=== PATIENT | female | born 1975 | race Caucasian/White ===

== ENCOUNTER → 2019-07-13 | Outpatient (CLI) | payer OTHER ==
[~2019-07-13] MED LIST: ATOM25CA3 PO; B 12; BPR150TCR PO; CALC-139; CALC-656 PO; CALC-793; COLE1TAB; CPR500T PO; DIAZ10TA PO; DICY20TA57; DULO60CA6; DULO60CA6 PO; ERGO400C; EST1.25T PO; ESTR1TAB50 PO; HYDR-34; HYDR-3720 PO; KCL20TCR PO; LEVO175T2 PO; LEVO200T30; LEVO200T30 PO; LEVO500T69 PO; LIRA0.6P SQ; MAGN200T3 PO; MELO-195 PO; MELO7.5T; METR500T PO; MTF500T PO; NF-ESOM40C; NF-PREM2.5; OMEP20CA6 PO; PNT40TEC PO; SPIR25TA3 PO; VITA-185 PO; VITAMIN D
== END ==
LOC: LAB 08:25
PROVIDERS: ATTEND Chiropractor
DX: E03.9 Hypothyroidism, unspecified (principal); E34.9 Endocrine disorder, unspecified; D50.9 Iron deficiency anemia, unspecified; E55.9 Vitamin D deficiency, unspecified

== ENCOUNTER 2019-08-21 11:03 | Emergency (ER) | payer SELFPAY ==
[~2019-08-21] VITALS: Ht 177 cm; Wt 77.0 kg
[2019-08-21 11:34] LABS: BASOPHILS % (AUTO) 0 % (0-10); EOSINOPHILS % (AUTO) 0 % (0-10); HEMATOCRIT 41 % (35-52); HEMOGLOBIN 13.6 G/DL (11.5-16.0); LYMPHOCYTES # (AUTO) 1.5 X 10^3 (1.0-4.0); LYMPHOCYTES % (AUTO) 39 % (12-44); MEAN CORPUSCULAR HEMOGLOBIN 28 PG (25-34); MEAN CORPUSCULAR HGB CONC 34 G/DL (32-36); MEAN CORPUSCULAR VOLUME 84 FL (80-99); MEAN PLATELET VOLUME 10.7 FL (7.4-10.4); MONOCYTES # (AUTO) 0.3 X 10^3 (0.0-1.0); MONOCYTES % (AUTO) 8 % (0-12); NEUTROPHILS % (AUTO) 53 % (42-75); PLATELET COUNT 150 10^3/uL (130-400); RED CELL DISTRIBUTION WIDTH 12.5 % (10.0-14.5); WHITE BLOOD COUNT 3.8 10^3/uL (4.3-11.0)
[2019-08-21 11:46] LABS: ALBUMIN 4.2 GM/DL (3.2-4.5); CHLORIDE 106 MMOL/L (98-107); POTASSIUM 3.3 MMOL/L (3.6-5.0); SODIUM 138 MMOL/L (135-145)
[2019-08-21 11:49] LABS: GLUCOSE 94 MG/DL (70-105); TOTAL PROTEIN 7.2 GM/DL (6.4-8.2)
[2019-08-21 11:50] LABS: BILIRUBIN,TOTAL 0.4 MG/DL (0.1-1.0); CARBON DIOXIDE 20 MMOL/L (21-32)
[2019-08-21 11:52] LABS: ALKALINE PHOSPHATASE 66 U/L (40-136); CREATININE SERUM 0.74 MG/DL (0.60-1.30); GFR ESTIMATED > 60
[2019-08-21 11:53] LABS: BUN/CREATININE RATIO 18
[2019-08-21 11:55] LABS: ALANINE AMINOTRANSFERASE 34 U/L (0-55)
[2019-08-21 11:56] LABS: ERYTHROCYTE SEDIMENTATION RATE 18 MM/HR (0-20)
[2019-08-21] MEDS ORDERED: NS IV 1000 ML 1,000 ML IV SCH (12:17)
--- NOTE | 2019-08-21 12:17 | ED Cough/URI ---
General Stated Complaint: COVID SYMPTOMS History of Present Illness Date Seen by Provider: Aug 21, 2019 Time Seen by Provider: 11:35 Initial Comments 44 year old female presents 8 days after symptoms of COVID-19 started. She was tested at [facility], no results called to patient. We called to [facility] and results are still pending. She reports fevers and home SaO2 at 65% this am but 96% on RA on admission here. Her best friend is Aspen Fitzpatrick APRN and she started her on Decadron, Plaquenil and Pulmicort yesterday. She has not been seen by a Health Care provider, other than for testing. She does not take Tylenol or Ibuprofen for fevers, does not like to take medication. She reports loss of appetite, smell and taste. Patient has a chronic history of asthma and bronchitis. Timing/Duration: getting worse Severity/Quality: mild, dry cough Prior Episodes/Possible Cause: no prior episodes Associated Symptoms: cough, fever/chills, muscle aches, shortness of breath Allergies and Home Medications Allergies Coded Allergies: morphine (Unverified Allergy, Mild, 07/20/08) Home Medications Bupropion Hcl 150 Mg Tablet, 1 TAB PO DAILY, (Reported) Diazepam 10 Mg Tablet, 1 EACH PO BID PRN Prescribed by: MITZI MIRANDA on 05/30/131710 Levofloxacin 500 Mg Tab, 1 EACH PO DAILY Prescribed by: MITZI MIRANDA on 05/30/131708 Levothyroxine Sodium 175 Mcg Tablet, 1 EACH PO DAILY, (Reported) Liraglutide 0.6 Mg/0.1 Ml Pen.injctr, 1.8 MG SQ DAILY, (Reported) Metformin Hcl 500 Mg Tab, 1,000 MG PO DAILY, (Reported) Pantoprazole Sodium 40 Mg Tablet.dr, 1 TAB PO DAILY Prescribed by: MITZI MIRANDA on 05/30/131710 Vitamin B Complex 1 Each Tablet, 1 EACH PO DAILY Prescribed by: MITZI MIRANDA on 05/30/131710 Patient Home Medication List Home Medication List Reviewed: Yes Review of Systems Review of Systems Constitutional: see HPI, fever, malaise, weakness EENTM: see HPI Respiratory: see HPI, cough, short of breath Cardiovascular: no symptoms reported, see HPI Gastrointestinal: no symptoms reported, see HPI; No abdominal pain, No constipation, No diarrhea; loss of appetite; No nausea, No vomiting Genitourinary: no symptoms reported, see HPI : No Musculoskeletal: see HPI, muscle pain, muscle stiffness All Other Systems Reviewed Negative Unless Noted: Yes Past Hadbjdu-Kjqsct-Jumweh Hx Past Med/Social Hx: Reviewed Nursing Past Med/Soc Hx Physical Exam Vital Signs - First Documented 08/21/19 11:03 Temp 37.0 Pulse 96 Resp 11 B/P (MAP) 131/85 (100) Pulse Ox 97 O2 Delivery Room Air Capillary Refill : Height: 5'8.00" Weight: 175lbs. 0.0oz. [id number]; BMI Method:Stated General Appearance: WD/WN, no apparent distress Eyes: Bilateral Eye Normal Inspection, Bilateral Eye PERRL, Bilateral Eye EOMI HEENT: PERRL/EOMI, normal ENT inspection, TMs normal, pharynx normal Neck: non-tender, full range of motion, supple, normal inspection Respiratory: chest non-tender, lungs clear, normal breath sounds; No decreased breath sounds, No crackles, No rales, No rhonchi, No wheezing Cardiovascular: normal peripheral pulses, regular rate, rhythm Gastrointestinal: normal bowel sounds, non tender, soft Extremities: normal range of motion, non-tender, normal inspection, no pedal edema, no calf tenderness, normal capillary refill Neurologic/Psychiatric: no motor/sensory deficits, alert, normal mood/affect, oriented x 3 Skin: normal color, warm/dry; No rash Progress/Results/Core Measures Suspected Sepsis SIRS Temperature: Pulse: Respiratory Rate: Laboratory Tests 08/21/19 11:15: White Blood Count 3.8L Blood Pressure / Mean: Laboratory Tests 08/21/19 11:15: Creatinine 0.74, Platelet Count 150, Total Bilirubin 0.4 Results/Orders Lab Results Laboratory Tests Test 08/21/19 11:15 Range/Units White Blood Count 3.8 L 4.3-11.0 10^3/uL Red Blood Count 4.81 4.35-5.85 10^6/uL Hemoglobin 13.6 11.5-16.0 G/DL Hematocrit 41 35-52 % Mean Corpuscular Volume 84 80-99 FL Mean Corpuscular Hemoglobin 28 25-34 PG Mean Corpuscular Hemoglobin Concent 34 32-36 G/DL Red Cell Distribution Width 12.5 10.0-14.5 % Platelet Count 150 130-400 10^3/uL Mean Platelet Volume 10.7 H 7.4-10.4 FL Neutrophils (%) (Auto) 53 42-75 % Lymphocytes (%) (Auto) 39 12-44 % Monocytes (%) (Auto) 8 0-12 % Eosinophils (%) (Auto) 0 0-10 % Basophils (%) (Auto) 0 0-10 % Neutrophils # (Auto) 2.0 1.8-7.8 X 10^3 Lymphocytes # (Auto) 1.5 1.0-4.0 X 10^3 Monocytes # (Auto) 0.3 0.0-1.0 X 10^3 Eosinophils # (Auto) 0.0 0.0-0.3 10^3/uL Basophils # (Auto) 0.0 0.0-0.1 10^3/uL Erythrocyte Sedimentation Rate 18 0-20 MM/HR D-Dimer 0.44 0.00-0.49 UG/ML Sodium Level 138 135-145 MMOL/L Potassium Level 3.3 L 3.6-5.0 MMOL/L Chloride Level 106 98-107 MMOL/L Carbon Dioxide Level 20 L 21-32 MMOL/L Anion Gap 12 5-14 MMOL/L Blood Urea Nitrogen 13 7-18 MG/DL Creatinine 0.74 0.60-1.30 MG/DL Estimat Glomerular Filtration Rate > 60 BUN/Creatinine Ratio 18 Glucose Level 94 70-105 MG/DL Calcium Level 9.0 8.5-10.1 MG/DL Corrected Calcium 8.8 8.5-10.1 MG/DL Total Bilirubin 0.4 0.1-1.0 MG/DL Aspartate Amino Transf (AST/SGOT) 24 5-34 U/L Alanine Aminotransferase (ALT/SGPT) 34 0-55 U/L Alkaline Phosphatase 66 40-136 U/L Lactate Dehydrogenase 195 125-220 U/L C-Reactive Protein High Sensitivity 0.15 0.00-0.50 MG/DL Total Protein 7.2 6.4-8.2 GM/DL Albumin 4.2 3.2-4.5 GM/DL Procalcitonin 0.02 <0.10 NG/ML My Orders Orders - MIKAELA NAILS Cbc With Automated Diff (08/21/19 11:20) Comprehensive Metabolic Panel (08/21/19 11:20) Fibrin Degradation Products (08/21/19 11:20) Procalcitonin (Pct) (08/21/19 11:20) Hs C Reactive Protein (08/21/19 11:20) Erythrocyte Sedimentation Rate (08/21/19 11:20) LDH (08/21/19 11:20) Chest 1 View, Ap/Pa Only (08/21/19 11:20) Ed Iv/Invasive Line Start (08/21/19 12:17) Ns Iv 1000 Ml (Sodium Chloride 0.9%) (08/21/19 12:17) Potassium Chloride (Tablet) (Klor Con Ta (08/21/19 12:27) Vital Signs/I&O 08/21/19 08/21/19 11:03 13:16 Temp 37.0 37.0 Pulse 96 84 Resp 11 16 B/P (MAP) 131/85 (100) 121/77 (100) Pulse Ox 97 98 O2 Delivery Room Air Room Air Capillary Refill : Progress Note : Time: 11:35 Progress Note Patient seen and evaluated, will obtain labs and chest x-ray, we'll continue to monitor. Normal saline 1 L per IV. 1230 Labs WNL. Patient feels less weak. SaO2 has remained 96-98% on RA. Stressed importance to stay home, isolate and await results. With current symptoms, likely that she has COVID-19. Discharge instructions and return precautions reviewed with the patient. All questions answered. Diagnostic Imaging Diagonstic Imaging: Xray Plain Films/CT/US/NM/MRI: chest Comments NAME: MIKAELA MONTES [facility] REC#: [id number] PT STATUS: REG ER : 1975 PHYSICIAN: MIKAELA NAILS [facility] ADMIT DATE: 08/21/19/ER Draft Date of Exam:08/21/19 CHEST 1 VIEW, AP/PA ONLY INDICATION: COVID symptoms. TIME OF EXAM: 11:59 AM Correlation is made with prior chest from 09/08/2009. The heart size is normal. The pulmonary vascularity is normal. There is minimal increased density along the periphery of the left mid lung. While this could be secondary to overlying soft tissues, minimal infiltrate at this location cannot be entirely excluded. No effusion is seen. There is no pneumothorax. Remainder of lung golden are clear. IMPRESSION: Questionable minimal infiltrate versus overlying soft tissues left mid lung peripherally. Study is otherwise unremarkable. Dictated on workstation # [id number] Dict: 08/21/19 1222 Trans: 08/21/[address] [facility] [id number] Interpreted by: KELLY KAUR MD Electronically signed by: Reviewed: Reviewed by Me Departure Impression Primary Impression: COVID-19 PUI Disposition: 01 HOME, SELF-CARE Condition: Stable Departure-Patient Inst. Decision time for Depature: 12:50 Referrals: DELMER UPTON DO (PCP/Family) Primary Care Physician Patient Instructions: Coronavirus Disease 2019 (COVID-19) (DC) Add. Discharge Instructions: Increase rest, fluids and stay home, until test results are called to you. Alternate Tylenol 650 mg and Ibuprofen 600 mg every 4 hours, for fever or gen eralized discomfort. Call Dr. Upton, if symptoms are not improving or worsen. Continue to take Plaquenil, Decadron and use the Pulmicort, as previously prescribed. Return to the Emergency Dept if shortness of breath, fever not improved with Tylenol or Ibuprofen or new urgent health care needs. Copy Copies To 1: DELMER UPTON AMY ARNP Aug 21, 2019 12:17
--- NOTE | 2019-08-21 12:25 | Diagnostic Imaging Report ---
INDICATION: COVID symptoms. TIME OF EXAM: 11:59 AM Correlation is made with prior chest from 09/08/2009. The heart size is normal. The pulmonary vascularity is normal. There is minimal increased density along the periphery of the left mid lung. While this could be secondary to overlying soft tissues, minimal infiltrate at this location cannot be entirely excluded. No effusion is seen. There is no pneumothorax. Remainder of lung golden are clear. IMPRESSION: Questionable minimal infiltrate versus overlying soft tissues left mid lung peripherally. Study is otherwise unremarkable. Dictated by: Dictated on workstation # [id number]
[2019-08-21] MEDS ORDERED: KCL 10 MEQ TAB (MICRO K) PO STA (12:27)
[2019-08-21 13:16] VITALS: BP 121/77
== END 2019-08-21 13:17 | disposition home or self-care (01) ==
LOC: EDUNIT# 11:13 → ER 11:15
DX: Z20.828 Contact with and (suspected) exposure to other viral communicable diseases (principal); Z88.5 Allergy status to narcotic agent; Z79.84 Long term (current) use of oral hypoglycemic drugs
CPT/HCPCS: 36415; 71045; 80053; 83615; 84145; 85025; 85379; 85652; 86141; 96360

== ENCOUNTER → 2020-07-28 | Outpatient (CLI) | payer MEDICAID ==
--- NOTE | 2020-07-28 09:58 | Diagnostic Imaging Report ---
Clinical indication: Patient having dizzy spells and memory problems. Exam: MRI of the brain performed without IV contrast. Sequences include axial DWI, ADC map, axial T2, axial FLAIR, axial T1, axial gradient echo, and sagittal T1. Comparison: MRI of the brain without and with contrast dated 10/17/2007. Findings: There is no evidence of acute cerebral infarct, intracranial hemorrhage, or gross mass effect. The brain parenchymal volume appears appropriate for patient's age. There is normal vogt-white matter distinction. There is no significant midline shift or herniation. There is no evidence of hydrocephalus. The basal cisterns are unremarkable. There is fatty infiltration and atrophy of the left parotid gland which is also noted on the prior study. Otherwise, the skull, extracranial soft tissue, and orbits are unremarkable. The paranasal sinuses are unremarkable. Temporal bones show no significant abnormality. IMPRESSION: 1: Unremarkable MRI of the brain. 2: Partially visualized fatty replacement and atrophy of the left parotid gland is again noted. Dictated by: Dictated on workstation # [id number]
== END ==
LOC: RAD 08:45
PROVIDERS: ATTEND Nurse Practitioner Family
DX: F68.8 Other specified disorders of adult personality and behavior (principal); K11.0 Atrophy of salivary gland; R41.3 Other amnesia
CPT/HCPCS: 70551

== ENCOUNTER → 2020-10-14 | Outpatient (CLI) | payer MEDICAID ==
[2020-10-14 10:03] LABS: HEMATOCRIT 42 % (35-52); HEMOGLOBIN 13.6 g/dL (11.5-16.0); MEAN CORPUSCULAR HEMOGLOBIN 29 pg (25-34); MEAN CORPUSCULAR HGB CONC 32 g/dL (32-36); MEAN CORPUSCULAR VOLUME 89 fL (80-99); MEAN PLATELET VOLUME 10.7 fL (9.0-12.2); PLATELET COUNT 166 10^3/uL (130-400); WHITE BLOOD COUNT 5.2 10^3/uL (4.3-11.0)
[2020-10-14 10:40] LABS: FREE T4 (FREE THYROXINE) 0.84 NG/DL (0.70-1.48)
--- NOTE | 2020-10-14 13:41 | Diagnostic Imaging Report ---
PROCEDURE: MR imaging cervical spine without contrast. TECHNIQUE: Multiplanar, multisequence MR imaging of the cervical spine was performed without contrast. INDICATION: Neck pain. No known injury. COMPARISON: 04/11/2013. FINDINGS: No acute fracture or dislocation is seen in the cervical spine. There is slight reversal of the normal lordotic curvature of the cervical spine centered at the C4-C5 level. The vertebral body heights and disc spaces are well maintained. The bone marrow signal is unremarkable. Benign hemangioma is seen in the C7 vertebral body. Benign-appearing cyst is noted in the posterior aspect of the C5 vertebral body. The craniocervical junction is maintained. The cervical spinal cord demonstrates normal intrinsic signal. No epidural collections are seen. The included brainstem and posterior fossa have normal appearance. Multilevel degenerative changes are seen in the cervical spine with posterior disc bulges and uncovertebral arthropathy. C2-C3: No significant spinal canal or foraminal stenosis. C3-C4: No significant spinal canal or foraminal stenosis. C4-C5: No significant spinal canal or foraminal stenosis. C5-C6: Left subarticular disc protrusion and uncovertebral arthropathy results in no significant spinal canal narrowing, mild to moderate left lateral recess narrowing, and no right and moderate left foraminal stenosis. C6-C7: Posterior disc bulge and uncovertebral arthropathy results in mild spinal canal narrowing and mild to moderate bilateral foraminal narrowing. C7-T1: No significant spinal canal or foraminal stenosis. The soft tissues of neck are unremarkable. IMPRESSION: 1. No acute fracture or dislocation of the cervical spine. 2. Multilevel degenerative changes in the cervical spine, greatest at C5-C6 and C6-C7. These findings have progressed since the prior exam. Dictated by: Dictated on workstation # [id number]
--- NOTE | 2020-10-14 13:42 | Diagnostic Imaging Report ---
TECHNIQUE: Multiplanar multisequence MRI of the thoracic spine is performed without contrast. REASON FOR EXAM: Mid back pain. No known injury. COMPARISON: None. FINDINGS: No acute fracture or dislocation is seen in the thoracic spine. Alignment is anatomic. No focal osseous lesions are seen. The bone marrow signal is unremarkable. Vertebral body heights are maintained. The thoracic spinal cord demonstrates normal intrinsic signal. No evidence of cord expansion. No epidural collections. No significant spinal canal or foraminal stenosis is seen in the thoracic spine. The paraspinal soft tissues are normal. The included lungs are clear. IMPRESSION: 1. No acute fracture or dislocation in the thoracic spine. 2. No significant spinal canal or foraminal stenosis in the thoracic spine. Dictated by: Dictated on workstation # [id number]
== END ==
LOC: RAD 09:44
PROVIDERS: ATTEND Nurse Practitioner Family
DX: M47.22 Other spondylosis with radiculopathy, cervical region (principal)
CPT/HCPCS: 36415; 72141; 72146; 84439; 84443; 84481; 85027

== ENCOUNTER 2021-01-27 11:47 | Outpatient (CLI) | payer MEDICAID ==
[~2021-01-27] VITALS: Ht 170.2 cm; Wt 79.4 kg
[2021-01-27 11:23] VITALS: BP 119/77
[2021-01-27] MEDS ORDERED: ONDANSETRON 4 MG/2 ML (SDV) Z0FRAN IV PRN (12:00)
[2021-01-27] MEDS ORDERED: ACETAMINOPHEN 500 MG TAB (TYLENOL) PO PRN (12:00)
[2021-01-27] MEDS ORDERED: diphenhydrAMINE 50 MG/ML INJ (BENADRYL) IV PRN (12:00)
[2021-01-27] MEDS ORDERED: EPINEPHrine INJECTION 1 MG/ML AMP IM PRN (12:00)
[2021-01-27] MEDS ORDERED: BAMLANIVIMAB 700 MG/ETESEVIMAB 1,400 MG IN NS IV ONE ×3 (12:00)
[2021-01-27 12:46] VITALS: BP 118/79
== END 2021-01-27 13:28 | disposition home or self-care (01) ==
LOC: INFUSION 11:47
PROVIDERS: ATTEND Nurse Practitioner Family
DX: U07.1 COVID-19 (principal)